=== PATIENT | female | born 1990 | race Caucasian/White ===

== ENCOUNTER 2016-10-14 20:11 | Emergency (ER) | payer OTHER ==
[2016-10-14] MEDS ORDERED: LORazepam 1 MG Tab PO ONE (20:39)
[2016-10-14 20:51] VITALS: BP 125/76
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
== END 2016-10-14 22:34 | disposition home or self-care (01) ==
LOC: LL.ED 20:11
DX: F22 Delusional disorders (principal); T43.215A Adverse effect of selective serotonin and norepinephrine reuptake inhibitors, initial encounter; J45.909 Unspecified asthma, uncomplicated; Z88.8 Allergy status to other drugs, medicaments and biological substances; Z79.899 Other long term (current) drug therapy
CPT/HCPCS: 99284; A9270